=== PATIENT | male | born 1955 | race Caucasian/White ===

== ENCOUNTER → 2017-03-16 | Outpatient (CLI) | payer OTHER ==
--- NOTE | 2017-03-20 12:31 | SLEEP ---
DATE OF STUDY: 03/16/2017 SLEEP STUDY ATTENDING PHYSICIAN: Roney Belle DO. The patient is 62 years old who weighs 235 pounds with a BMI of 35. The patient's Parker score was 13, suggesting moderate subjective hypersomnia. A split-night study was performed at [facility]. During the night study, the patient spent 487 minutes in bed and slept for 429 minutes with a sleep efficiency of 88%. Sleep latency was 35 minutes with a REM latency of 60 minutes. Overall, sleep architecture showed normal stage I sleep, increased stage II sleep, normal slow wave and slightly reduced REM sleep. During the initial diagnostic portion of the study, the patient slept for 273 minutes. During this time, there were 9 obstructive apneas, 3 mixed and no central apneas. There were 36 hypopneas. The patient's apnea-hypopnea index was 11 per hour, supine index 13 per hour and a REM index of 17 per hour. Review of nocturnal oximetry study revealed a mean oxygen saturation of 94% with lowest of 86%, 3.5% of the time oxygen saturation remained between 80% and 89%. EKG monitoring revealed normal sinus rhythm, average heart rate was 70 beats per minute. No arrhythmias were observed. PLMS were not seen. The patient met the criteria for CPAP initiation. It was started at 5 cm water and titrated up to 12 cm of water. At the final pressure, the patient slept for 43 minutes. The patient had supine as well as REM sleep. The patient's AHI was reduced to 1 per hour and oxygen saturation remained above 91%. The patient used small-sized nasal pillows. IMPRESSION: 1. Mild sleep apnea-hypopnea syndrome with moderate increase during REM sleep. Total AHI 11 per hour with a REM AHI of 17 per hour. 2. No clinically significant nocturnal hypoxia. 3. No clinically significant PLMS. RECOMMENDATIONS: 1. CPAP at 12 cm of water completely eliminated the patient's sleep apnea and should be used on a nightly basis. 2. Follow up in 4-6 weeks to assess compliance with CPAP and to document clinical improvement. 3. Weight loss is strongly advised. 4. Avoid [employer] depressants. 5. Caution regarding driving until symptoms of sleep apnea resolve with the use of CPAP. 6. If the patient does not want to use CPAP, then consider use of oral appliance. LINDSAY MAI MD DR: BEATRIS/renate JOB#: [id number] / [id number] RONEY Jansen
== END | disposition home or self-care (01) ==
LOC: SLPLAB 18:49
PROVIDERS: ATTEND Family Medicine
DX: G47.33 Obstructive sleep apnea (adult) (pediatric) (principal)
CPT/HCPCS: 95810